=== PATIENT | female | born 1985 | race Two or more races ===

== ENCOUNTER → 2019-02-05 08:51 | Outpatient (CLI) | payer BC | END | disposition home or self-care (01) | LOC: D.RAD 08:51 | PROVIDERS: ATTEND Internal Medicine Gastroenterology | DX: R10.9 Unspecified abdominal pain (principal) ==

== ENCOUNTER 2020-12-30 08:00 | Outpatient (CLI) | payer BC | END 2020-12-30 23:59 | disposition home or self-care (01) | LOC: D.MAMMO 08:00 | PROVIDERS: ATTEND Nurse Practitioner Family | DX: R92.8 Other abnormal and inconclusive findings on diagnostic imaging of breast (principal) ==